=== PATIENT | male | born 1955 | race Caucasian/White ===

== ENCOUNTER → 2024-04-12 21:58 | Day surgery (SDC) | payer MEDICARE, OTHER, SELFPAY ==
[2024-04-12] VITALS (7 sets, daily range): BP systolic 111–166; BP diastolic 83–113
--- NOTE | 2024-04-12 18:59 | ED.GENMED ---
History of Present Illness
General
Chief Complaint: Esophageal Problem
Source: patient and records
Time Seen by Provider: 04/12/24 18:44
History of Present Illness
History of Present Illness:
68-year-old male with past medical history of hypertension, Schatzki's ring, born with VSD but repaired presenting to the emergency department for evaluation of suspected food bolus impaction, was eating beef when he states he felt he was unable to
swallow anything further and foreign body sensation. States he did attempt to pass by drinking water and soda and states he was able to cough some of the beef up but still notes foreign body sensation and inability to tolerate p.o. Patient denies
any difficulty breathing. He notes that he had 1 similar episode a few years ago which did require him to go to endoscopy for food bolus retrieval. He does report Omeprazole daily. No other concerns at this time.
Past History
Past History
ED Past Medical History: HTN and Other (Diverticulitis); Negative Arrthythmia, Asthma, CAD, Cancer, CHF, COPD, CVA, Hypercholesterolemia or NIDDM
ED Past Surgical History: Cardiac
Social History
Tobacco: Non-smoker
Alcohol: Occasional
Drug: None
Personal:
Living: with family
Employment: Employed
Family History
Family History: Hypertension
Review of Systems
Review of Systems
All Other Systems: ROS reviewed and negative except as documented in HPI and ROS
Phy Exam
Physical Exam
Physical Exam:
GENERAL: Alert , in no apparent distress
EYE: conjunctiva clear
Head: Normocephalic atraumatic
NECK: Supple,
ENT: mmm. intermittently spitting into emesis basin
LUNGS: no acute respiratory distress
HEART: Regular rate and rhythm
ABDOMEN: Soft, NTND
NEUROLOGICAL: Alert and oriented
SKIN: Warm and dry, skin intact.
MUSCULOSKELETAL: well perfused.
PSYCH: Normal and appropriate interaction.
Scores
Heart Failure Risk
Heart Failure Risk Score: Not Applicable
Heart Score for Chest Pain Patients
STEMI patient?: Not applicable
Withdrawal Assessment of Alcohol
Withdrawal Assessment Completed?: Not applicable
Course
Orders/Labs/Results
Orders:
Orders
04/12/24 18:55
Glucagon [GlucaGen] 1 mg IV NOW STA
04/12/24 19:09
Basic Metabolic Panel Urgent
Complete Blood Count/With Diff Urgent
04/12/24 20:07
Glucagon [GlucaGen] 1 mg IV NOW STA
04/12/24 21:24
Dexamethasone Sod Phosphate [Decadron] 20 mg .ROUTE .STK-MED ONE
04/12/24 21:25
Fentanyl Citrate/Pf [Sublimaze] 100 mcg .ROUTE .STK-MED ONE
Lidocaine 2% Mpf [Xylocaine Mpf 2%] 100 mg .ROUTE .STK-MED ONE
Ondansetron Injectable [Zofran] 4 mg .ROUTE .STK-MED ONE
Propofol [Diprivan] 20 ml .ROUTE .STK-MED
Rocuronium Hastings [Rocuronium] 50 mg .ROUTE .STK-MED ONE
Succinylcholine Chloride [Succinylcholine] 200 mg .ROUTE .STK-MED ONE
Sugammadex Sodium [Bridion] 200 mg .ROUTE .STK-MED ONE
04/12/24 22:36
HYDROmorphone [Dilaudid] 0.25 mg IV PACU-Q5MPRN PRN
HYDROmorphone [Dilaudid] 0.5 mg IV PACU-Q5MPRN PRN
Meperidine [Demerol] 12.5 mg IV PACU-Q5MPRN PRN
Ondansetron Injectable [Zofran] 4 mg IV PACU-ONCEPRN PRN
Prochlorperazine [Compazine] 5 mg IV PACU-ONCEPRN PRN
Notify MD As Directed
Notify physician if: for SDS patients with known or suspected sleep obstructive sleep apnea, monitor in the
PACU.
Notify MD for any apneic/desaturation episodes
O2 Therapy [RESP] Urgent
Titrate/Wean O2 to maintain O2 sat greater than (%): 92
Special Instructions: -Provide supplemental oxygen to achieve O2 sat of 92% or greater.
-After 15 min, may wean O2 and discontinue if patient is able to maintain O2 sat of 92%
or greater during recovery period.
If patient is a discharge home, without oxygen therapy, notify anestheiologist if
unable to maintain O2 SAT of 92% or greater on room air for MD clearance.
04/12/24 22:45
Normosol (Mult Electrolytes) [Normosol-R] 1,000 ml IV PER PROTOCOL
Abnormal Lab Results
04/12/24
19:09
MCH 32.6 H pg
(27.0-31.0)
Monocytes % 9.6 H %
(1.7-9.3)
04/12/24 19:09
04/12/24 19:09
Vital Signs
Initial and Last Documented VS:
Initial Vital Signs
Temp Pulse Resp BP Pulse Ox
97.8 F 92 20 166/113 97
04/12/24 18:27 04/12/24 18:27 04/12/24 18:27 04/12/24 18:27 04/12/24 18:27
Last Documented Vital Signs
Temp Pulse Resp BP Pulse Ox
97.1 F 95 16 146/86 100
04/12/24 23:23 04/12/24 23:34 04/12/24 23:34 04/12/24 23:34 04/12/24 23:34
MDM/Problems Addressed
Differential Diagnosis Includes:
Food bolus impaction, esophageal narrowing, Schatzki's ring, achalasia
MDM/Problems Addressed:
68-year-old male presenting emergency department for evaluation of suspected food bolus impaction. Patient noted to be continuously spitting into emesis basin but is not having any airway compromise. Has had dilatation of Schatzki's ring in the
past. Reports good compliance with his omeprazole. Will check labs and glucagon. Unsuccessful will consider second dose of glucagon and patient may need to go back to an suite for food bolus retrieval
*Pulse Oximetry
Patient hypoxic: no
*Critical Care Note
Total Time (30-74mins, 75-104mins- exclusive of procedures): Not Applicable
Data Reviewed
Review of Other/Old Records Reveals: Records and Discharge Summary
Source: patient and records
Comment
Comment:
On reevaluation patient is without any relief of symptoms. He does feel that the food bolus may have moved a little bit more distally. Will attempt second dose of glucagon. If unsuccessful will notify GI if patient would likely need to go for
endoscopy
Patient Management
Discussion with other providers: Distribution Systems Serviceperson
Escalation/DeEscalation of care consider admission/obs:
Patient had no relief following first glucagon dose so was given second. He still notes he feels foreign body sensation. We did attempt p.o. trial with some ramon irene but patient did not have success with keeping this down. I notified on-call GI
physician Dr. Juan who will arrange to take patient to endoscopy suite for retrieval
ED Attending Note
-
Portions of this chart may have been created with voice recognition software.� Occasional wrong word or��sound alike� substitutions may have occurred due to the inherent limitations of voice recognition software.
Discharge Plan
Departure
Patient Disposition: GI LAB
Date of Disposition: 04/12/24
Time of Disposition: 20:54
Presentation/result/management discussed w/ accepting MD/: Drake
Discharge Problem:
Food impaction of esophagus
Interventions
Interventions:
*Risk Screen - Suicide Last Done: 04/12/24 20:08
*General Assessment Last Done: 04/12/24 20:08
*Neglect/Abuse Screening Last Done: 04/12/24 20:08
ED- Fall Risk Assessment Last Done: 04/12/24 21:57
*ED COVID-19 Vaccine History Last Done: 04/12/24 20:08
*Nursing Disposition Last Done: 04/12/24 21:57
LO-Ubfpxh-Xhbsxyqogm Assessment Last Done: 04/12/24 20:00
ED-EENT Assessment Last Done: 04/12/24 20:00
Discharge Date and Time
Discharge Date/Time: 04/12/24 21:58
[2024-04-12 19:14] LABS: % Eosinophils 5.3 % (0-6); % Immature Granulocytes 0.2 % (0-0.5); % Lymphocytes 32.8 % (20.5-51.1); % Monocytes 9.6 % (1.7-9.3); % Neutrophils 51.1 % (42.2-75.2); Absolute Basophils 0.1 10^3/uL (0-0.2); Absolute Eosinophils 0.3 10^3/uL (0-0.7); Absolute Lymphocytes 1.9 10^3/uL (1.2-3.4); Absolute Monocytes 0.6 10^3/uL (0.1-0.6); Hematocrit 42.8 % (39.0-52.0); Hemoglobin 15.3 g/dL (13.0-18.0); Mean Corp Hgb Conc. 35.7 g/dL (33.0-37.0); Mean Corpuscular Hgb 32.6 pg (27.0-31.0); Mean Corpuscular Volume 91.1 fL (80.0-94.0); Mean Platelet Volume 10.1 fL (7.4-10.4); Nucleated Red Blood Cells % 0 % (-); Platelet Count 212 10^3/uL (130-400); Red Cell Dist. Width 12.4 % (11.5-14.5); White Blood Cell Count 5.9 10^3/uL (4.8-10.8)
[2024-04-12] MEDS: GlucaGen 1 MG IV ×2 (19:14→20:12)
[2024-04-12 19:34] LABS: Blood Urea Nitrogen 14 mg/dl (9-20); Calcium 9.3 mg/dl (8.4-10.2); Carbon Dioxide 25 mmol/L (22-30); Chloride 104 mmol/L (98-107); Glucose 95 mg/dl (70-99); Potassium 4.6 mmol/L (3.5-5.1); Sodium 139 mmol/L (135-145); eGFR > 60.00
--- NOTE | 2024-04-12 22:08 | CON.GI ---
Consultation
-
Date/Time Consultation Requested: 04/12/2024
Date/Time Consultation Performed: 04/12/2024
Requesting Provider:
Performing Provider: Dr. Juan
Reason for Consultation: Food impaction
Medical History
Chief Complaint / HPI
Chief Complaint: Food impaction
History of Present Illness:
68-year-old male with history of hypertension presenting with complaints of food getting stuck in the lower esophagus after he ate filet mignon for lunch and also not able to swallow secretions. He feels like it is in the lower chest area with some
regurgitation. He had 2 episodes of food impaction, once in 2018 and once in 2019, he was noted to have grade D esophagitis in 2019 with stricture, never followed up with GI. He reports taking Naprosyn daily basis with good control of acid reflux
symptoms. Generally he denies any abdominal pain, nausea or vomiting. No trouble swallowing. No constipation, diarrhea, blood in the stool or black stool. Occasional NSAID use but not on a regular basis. Reports having colonoscopy several years
ago Cologuard 3 years ago reportedly negative. No family history of colon cancer or polyps in mother.
Past Medical History
Past Medical History: HTN and Other (ASD)
Past Surgical History: Orthopedic
Social History
Tobacco: Non-Smoker
Alcohol: Occasional
Family History
Family History: Reviewed & Not Pertinent
Allergies / Home Medications
Allergy/AdvReac Type Severity Reaction Status Date / Time
bee venom protein (honey bee) Allergy Swelling Verified 04/12/24 18:30
erythromycin base Allergy Unknown Verified 04/12/24 18:30
�Medication �Instructions �Recorded
atenolol 50 mg tablet 50 mg PO DAILY 01/04/19
multivitamin with folic acid 400 1 tab PO DAILY 01/04/19
mcg tablet (Tab-A-Radha)
tetrahydrozoline 0.05 %-zinc 0.25 1 drp BOTH EYES DAILYPRN PRN 01/04/19
% eye drops (Visine-AC) allergies
epinephrine 0.3 mg/0.3 mL 0.3 mg (0.3 mL) IM ONCE PRN 05/12/21
injection, auto-injector (EpiPen) acute/severe allergic reaction #2
mL
aspirin 81 mg tablet,delayed 162 mg PO DAILY 10/12/21
release
omeprazole 40 mg capsule,delayed 40 mg PO BID 10/12/21
release
Review of Systems
-
All other systems: A 12 pt ROS was Negative except as stated above in HPI
Vital Signs
Temp Pulse Resp BP Pulse Ox
97.8 F 91 18 162/102 100
04/12/24 18:27 04/12/24 21:55 04/12/24 21:55 04/12/24 21:55 04/12/24 21:55
Physical Exam
Exam
GI: Soft, Non Tender, Non Distended and Normal Bowel Sounds
Results
WBC 5.9 10^3/uL (4.8-10.8) 04/12/24 19:09
Hgb 15.3 g/dL (13.0-18.0) 04/12/24 19:09
Hct 42.8 % (39.0-52.0) 04/12/24 19:09
MCV 91.1 fL (80.0-94.0) 04/12/24 19:09
Plt Count 212 10^3/uL (130-400) 04/12/24 19:09
Absolute Neuts (auto) 3.0 10^3/uL (1.4-6.5) 04/12/24 19:09
Sodium 139 mmol/L (135-145) 04/12/24 19:09
Potassium 4.6 mmol/L (3.5-5.1) 04/12/24 19:09
Chloride 104 mmol/L (98-107) 04/12/24 19:09
Carbon Dioxide 25 mmol/L (22-30) 08/07/24 19:09
BUN 14 mg/dl (9-20) 04/12/24 19:09
Creatinine 0.9 mg/dL (0.7-1.3) 04/12/24 19:09
Calcium 9.3 mg/dl (8.4-10.2) 04/12/24 19:09
Diagnostic Image Results:
Prior GI Procedures:
EGD:
Colonoscopy:
Assessment / Plan
-
68-year-old male with history of hypertension presenting with food impaction. Previous history of food impaction in 2018 and 2019, esophagitis noted previously. Currently takes PPI. Did not have any GI follow-up since
-Food impaction
Rule out esophagitis, Schatzki's ring, eosinophilic esophagitis
For an upper endoscopy with food retrieval
Will intubate patient for the procedure
Will need follow-up in the office in 2 weeks.
-
-
Thank you for consultation and allowing me to participate in the patient's care. Please call the [facility] professional GI physician during the after hours with any questions or concerns.
== END ==
LOC: EMR 18:25 → SDS 21:58
PROVIDERS: Physician Assistant Medical; EMERGENCY PHYSICIAN Emergency Medicine; FAMILY PHYSICIAN Nurse Practitioner Family
DX: T18.128A Food in esophagus causing other injury, initial encounter (principal); W44.F3XA Food entering into or through a natural orifice, initial encounter; K22.2 Esophageal obstruction; K22.89 Other specified disease of esophagus; K31.89 Other diseases of stomach and duodenum; T18.108A Unspecified foreign body in esophagus causing other injury, initial encounter
CPT/HCPCS: 43247; 80048; 85025; 96374; 96376; 99285; J1610

== ENCOUNTER → 2024-10-23 07:30 | Outpatient (REF) | payer MEDICARE, OTHER, SELFPAY ==
[2024-10-23 08:39] LABS: % Basophils 0.7 % (0-2); % Eosinophils 5.6 % (0-6); % Immature Granulocytes 0.2 % (0-0.5); % Lymphocytes 40.1 % (20.5-51.1); % Monocytes 10.8 % (1.7-9.3); % Neutrophils 42.6 % (42.2-75.2); Absolute Eosinophils 0.3 10^3/uL (0-0.7); Absolute Lymphocytes 2.2 10^3/uL (1.2-3.4); Absolute Monocytes 0.6 10^3/uL (0.1-0.6); Absolute Neutrophils 2.3 10^3/uL (1.4-6.5); Hematocrit 42.6 % (39.0-52.0); Hemoglobin 14.8 g/dL (13.0-18.0); Mean Corp Hgb Conc. 34.7 g/dL (33.0-37.0); Mean Corpuscular Hgb 32.9 pg (27.0-31.0); Mean Corpuscular Volume 94.7 fL (80.0-94.0); Mean Platelet Volume 10.3 fL (7.4-10.4); Nucleated Red Blood Cells % 0 % (-); Platelet Count 206 10^3/uL (130-400); Red Cell Dist. Width 12.7 % (11.5-14.5); White Blood Cell Count 5.4 10^3/uL (4.8-10.8)
[2024-10-23 09:29] LABS: ALT (SGPT) 24 U/L (0-50); AST (SGOT) 31 U/L (17-59); Alkaline Phosphatase 58 U/L (38-126); Blood Urea Nitrogen 16 mg/dl (9-20); Calcium 8.8 mg/dl (8.4-10.2); Carbon Dioxide 27 mmol/L (22-30); Chloride 103 mmol/L (98-107); Glucose 111 mg/dl (70-99); HDL Cholesterol 42 mg/dl; LDL Cholesterol, Calculated 111 mg/dl; Potassium 4.6 mmol/L (3.5-5.1); Sodium 138 mmol/L (135-145); Total Bilirubin 1.2 mg/dl (0.2-1.3); Total Cholesterol 179 mg/dl (50-199); Total Protein 6.8 g/dl (6.3-8.2); Triglyceride 131 mg/dl (10-149); Very Low Density Lipoprotein 26 mg/dl (0-30); eGFR > 60.00
[2024-10-23 09:42] LABS: PSA, Total - Screen 0.78 ng/ml (0.0-4.0); TSH Reflex To Free T4 2.57 uIU/ml (0.47-4.68)
[2024-10-24 09:22] LABS: Glycohemoglobin (HgbA1c) 5.2 % (4.0-5.6)
== END ==
LOC: REG 07:30
PROVIDERS: ATTENDING PHYSICIAN Nurse Practitioner Family
DX: E78.2 Mixed hyperlipidemia (principal); R13.10 Dysphagia, unspecified; I10 Essential (primary) hypertension; Z12.5 Encounter for screening for malignant neoplasm of prostate; R53.83 Other fatigue; R73.9 Hyperglycemia, unspecified
CPT/HCPCS: 36415; 80053; 80061; 83036; 84443; 85025; G0103